=== PATIENT | male | born 1970 | race Caucasian/White ===

== ENCOUNTER 2016-09-20 05:26 | Day surgery (SDC) | payer OTHER ==
[2016-09-20] MEDS ORDERED: Sodium Chloride 0.9% 10 ML Syringe FLUSH PRN (06:00)
[2016-09-20] MEDS ORDERED: Dextrose 5%-0.45% NaCl 1,000 ML IV SCH (06:00)
[2016-09-20] MEDS ORDERED: Midazolam 1 MG/ML 2 ML SDV ONE (06:13)
[2016-09-20] MEDS ORDERED: fentaNYL 100 MCG/2 ML SDV ONE (06:13)
[2016-09-20] MEDS ORDERED: fentaNYL 100 MCG/2 ML SDV IV ONE ×3 (06:28→17:00)
[2016-09-20] MEDS ORDERED: Midazolam 1 MG/ML 2 ML SDV IV ONE ×3 (06:29→17:00)
--- NOTE | 2016-09-20 07:16 | OR ---
DATE: 09/20/2016 PROCEDURES: Esophagogastroduodenoscopy, NBI, and multiple pinch biopsies. INSTRUMENT USED: GIF-H180 Olympus video panendoscope. PREMEDICATIONS: No oral topical anesthesia used. Fentanyl 100 mcg intravenous, Versed 2 mg intravenous. The procedure was done under pulse oximetry, BP recording, and hospital monitor. 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 Followup esophagogastroduodenoscopy is performed for biopsies of the esophagus as to persistent eosinophilia and presence of eosinophilic esophagitis. Endoscopic hemostasis therapy if needed. DESCRIPTION OF PROCEDURE: The scope was passed with ease. Adequate visualization of the esophagus was made from proximal to distal areas. No upper esophageal lesions identified. No distal esophageal stricture. No uphill or downhill esophageal varices. No Mikayla-Murry tear. No whitish exudate or furrows noted. No distal esophageal stricture. No uphill or downhill esophageal varices. No Mikayla-Murry tear. No evidence of erosive esophagitis by Florence criteria. No esophageal polyp or tumor mass identified. Z-line was seen at 40 cm distal to the oral verge, configuration consistent with grade 1 by ZAP classification. No esophageal polyp or tumor mass identified. Multiple pinch biopsies, 2 in number, were taken from the distal esophagus and 4 in number were taken from the proximal-mid esophagus and sent for any histopathologic evidence of esophageal eosinophilia. NBI views were obtained of the esophagus. No proximal gastric varices noted. Gastric fundus examination by retroflexion showed no polypoid lesions. No gastric ulcer, polyp, tumor mass, or vascular ectasia identified. Duodenal bulb showed no ulcer. Visualized second part of the duodenum was unremarkable. No bleeding was noted from any of the visualized areas at the completion of examination. Photographs were taken of the duodenal bulb, gastric antrum, fundus, distal and proximal esophagus. No bleeding was noted from any of the visualized areas at the completion of examination. IMPRESSION: Normal study. The patient tolerated the procedure well. [facility] /[id number]
[2016-09-20 08:40] VITALS: BP 128/88
== END 2016-09-20 08:30 | disposition home or self-care (01) ==
LOC: DL.ENDO 05:26
PROVIDERS: ATTEND Internal Medicine Gastroenterology
DX: K20.8 Other esophagitis (principal); J30.2 Other seasonal allergic rhinitis; K21.9 Gastro-esophageal reflux disease without esophagitis
CPT/HCPCS: 43239; J2250; J3010; J7042

== ENCOUNTER 2016-10-10 05:53 | Day surgery (SDC) | payer OTHER ==
[2016-10-10 07:04] VITALS: BP 131/94
--- NOTE | 2016-10-10 10:26 | OR ---
DATE: 10/10/2016 PROCEDURE: Flexible sigmoidoscopy, NBI and multiple pinch biopsies. INSTRUMENT USED: CF-H180AL Olympus video colonoscope. PREOPERATIVE MEDICATION: None. 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 Follow up flexible sigmoidoscopic examination done for review of colonic mucosa, mucosal healing, any modification and therapy to be planned on, polypectomies and endoscopic hemostasis therapy if needed. DESCRIPTION OF PROCEDURE: Initial rectal exam was unremarkable. Rigid anoscopy showed diffuse mucosal erythema of the rectum. The colonoscope was passed with ease up to 25 cm proximal to the anal verge. No bleeding was noted from any of the visualized areas at the commencement of the examination. No stricture. No vascular ectasia. No large isolated ulcerations seen. No polyp or tumor mass identified. Visualized rectal mucosa showed diffuse erythema and contact bleeding. Photographs were taken, visualized sigmoid mucosa was normal. Photographs were taken of the rectum and sigmoid. Multiple pinch biopsies obtained from the sigmoid and rectum, and sent for histopathology. No bleeding was noted from any of the visualized areas at the completion of examination. IMPRESSION: Ulcerative proctitis. The patient tolerated the procedure well. [facility] /[id number]
== END 2016-10-10 07:22 | disposition home or self-care (01) ==
LOC: DL.SDS 05:53
PROVIDERS: ATTEND Internal Medicine Gastroenterology
DX: N41.1 Chronic prostatitis (principal); K21.9 Gastro-esophageal reflux disease without esophagitis; J30.2 Other seasonal allergic rhinitis

== ENCOUNTER 2017-12-06 07:20 | Day surgery (SDC) | payer OTHER ==
[~2017-12-06 07:20] MED LIST: Dextrose 5%-0.45% NaCl 1,000 ML IV SCH; Midazolam 1 MG/ML 2 ML SDV ONE; Sodium Chloride 0.9% 10 ML Syringe FLUSH PRN; fentaNYL 100 MCG/2 ML SDV ONE
[2017-12-06] MEDS ORDERED: fentaNYL 100 MCG/2 ML SDV IV ONE ×5 (07:21→08:38)
[2017-12-06] MEDS ORDERED: Midazolam 1 MG/ML 2 ML SDV IV ONE ×8 (07:21→08:40)
--- NOTE | 2017-12-06 09:40 | OR ---
DATE: 12/06/2017 PROCEDURES: Total colonoscopy and multiple pinch biopsies. INSTRUMENT USED: CF-H180 AL Olympus video colonoscope. PREMEDICATIONS: Fentanyl 150 mcg intravenous, Versed 5 mg intravenous. Nasal O2 cannula. The procedure was done under pulse oximetry, BP recording, and cardiac cath technologist. INDICATION: The patient with a known ulcerative colitis, on therapy. Colonoscopic examination is done for verification of mucosal healing. The patient on therapy and also had recently rectal bleeding. Biopsies to be obtained as indicated. Polypectomies as indicated. Endoscopic hemostasis therapy as needed. DESCRIPTION OF PROCEDURE: Initial rectal exam was unremarkable. Rigid anoscopy showed mild patchy erythema of the distal rectum. The colonoscope was passed with ease. Photographs were taken of the rectum with patchy erythema and normal appearing sigmoid colon. The scope was passed with ease up to the ileocecal area. Photographs were taken of the normal-appearing cecum identified by double- bulged ileocecal folds. No bleeding was noted from any of the visualized areas at the commencement of the examination. No stricture. No vascular ectasia. No isolated ulceration noted. No polyp or tumor mass identified. The bowel preparation was found to be adequate. Probing the proximal sides of folds and flexures, using adequate distention and clearing up the stool material, withdrawal of the scope was made. Multiple pinch biopsies were taken from the normal-appearing mucosa of the mid transverse colon, mid descending colon, sigmoid, and also from rectum showing patchy erythema. No bleeding was noted from any of the visualized areas at the completion of examination. IMPRESSION: Ulcerative colitis. The patient tolerated the procedure well. [facility] /[id number]
[2017-12-06 14:04] VITALS: BP 108/66
== END 2017-12-06 10:26 | disposition home or self-care (01) ==
LOC: DL.ENDO 07:20
PROVIDERS: ATTEND Internal Medicine Gastroenterology
DX: K51.90 Ulcerative colitis, unspecified, without complications (principal); K62.5 Hemorrhage of anus and rectum; K62.89 Other specified diseases of anus and rectum
CPT/HCPCS: 45380; J2250; J3010; J7042